=== PATIENT | female | born 1995 | race Caucasian/White ===

== ENCOUNTER 2016-07-21 12:48 | Emergency (ER) | payer OTHER, BC ==
[~2016-07-21] VITALS: Ht 170.2 cm; Wt 88.5 kg
[~2016-07-21 12:48] MED LIST: FLEXERIL10 MG PO; MOTRIN600 MG PO; NAPROSYN500 MG PO; PERCOCET 5/31 TABLET PO; PRENATAL TABLE1 EAC3 PO; TUMS500 MG PO
[2016-07-21 16:46] VITALS: BP 114/74
== END 2016-07-21 16:47 | disposition home or self-care (01) ==
LOC: EME 12:48
DX: S86.911A Strain of unspecified muscle(s) and tendon(s) at lower leg level, right leg, initial encounter (principal); M79.661 Pain in right lower leg; X50.0XXA Overexertion from strenuous movement or load, initial encounter
CPT/HCPCS: 93971; 99281; 99283

== ENCOUNTER 2016-08-17 14:29 | Emergency (ER) | payer OTHER, BC ==
[~2016-08-17] VITALS: Ht 172.7 cm; Wt 88.0 kg
[2016-08-17] MEDS ORDERED: SPRINTEC1 EACH PO (14:53)
[2016-08-17] MEDS ORDERED: IBUPROFEN800 MG PO (14:54)
[2016-08-17] MEDS ORDERED: NAPROSYN500 MG PO (15:12)
[2016-08-17 15:39] VITALS: BP 112/61
== END 2016-08-17 15:42 | disposition home or self-care (01) ==
LOC: EME 14:29
DX: S93.402A Sprain of unspecified ligament of left ankle, initial encounter (principal)
CPT/HCPCS: 99281; 99284